=== PATIENT | male | born 2000 | race Caucasian/White ===

== ENCOUNTER 2018-11-27 11:01 | Outpatient (CLI) | payer OTHER ==
[2018-11-27 11:34] VITALS: BP 90/50
--- NOTE | 2018-11-27 11:34 | SLEEP CARE CONSULTATION ---
Information from patient questionnaire entered by Gilma Arellano. I have reviewed and concur with the information entered by Gilma Arellano. This document represents the service I personally performed and the decisions made by me, Prahbu Barnes MD, [facility]. History of Present Illness Reason for Visit: New patient Accompanied by: Spouse Chief Complaint: reports: Unrefreshed sleep, Snoring, Observed pauses in breathing, Fatigue, Other (TEETH GRINDING) Duration of Symptoms: ABOUT 4 YEARS Usual bedtime: 12:00 AM Time it takes to fall asleep: 30-60 MINUTES Snores at night: Yes Observed to quit breathing while asleep: Yes Sleeps alone due to snoring: No Number of times waking at night: 0-4 Reasons for waking at night: reports: Bathroom, Other (DRY MOUTH) Toss, Turn, or Twitch while sleeping: Yes Recalls having dreams: Yes Usually gets out of bed at: [id number] Feels refreshed in the morning: No Morning headache: Yes Sleepy or fatigued during the day: Yes Ever fallen asleep while driving: No Takes day naps: Yes Dreams during day naps: Yes Prior sleep studies: No Additional HPI information: I had the pleasure of seeing Mr. Vega along with his today regarding the possibility of him having a sleep disorder. As you know, he is a 18 year old gentleman who complains of loud snore, observed apneas, teeth grinding, unrefreshed sleep, persistent fatigue, and excessive daytime sleepiness. He presently works evening shift. 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 Patient is Single and lives in [place]. Have you smoked in the past 12 months: Yes (VAPE) Alcohol use: No Caffeine use: Yes Caffeine amount and frequency: 1-2 DRINKS/DAY Family History Family history of sleep disordered breathing: Yes Family Hx Sleep Apnea: Father: Snoring Allergies and Home Medications Drug allergies reviewed: Yes Home medication list reviewed: Yes Review of Systems Cardiovascular: denies: high blood pressure, palpitations, chest pain, irregular heart rate or pulse, leg or foot swelling, have to sleep sitting up, other Respiratory: denies: shortness of breath, wheeze, sputum production, chronic cough, other Gastrointestinal: denies: heartburn, difficulty swallowing, nausea, vomitting, diarrhea, abdominal pain, other Urinary: denies: incontinence, frequency, urgency, impotence, other Neurological: reports: headaches Psychiatric: denies: Attention Deficit Hyperactivity, anxiety, depression, mood disorder, claustrophobia, other Endocrine: denies: thyroid disease, history of goiter, sluggishness, too hot or cold, excessive thirst, increased appetite, increased urination, unexplained weakness, other Musculoskeletal: reports: back pain Physical Exam Vital signs obtained and entered by: Dr. Barnes Blood Pressure: 90/50 Cuff size: long Heart Rate: 66 O2 Saturation: 99 Height: 5 ft 10 in Weight (kg): 124 lb Body Mass Index: 17.8 BMI Classification: Underweight Neck circumference: 13.5 HEENT: No craniofacial malformation Nostrils: patent to airflow Turbinates: normal Septum: midline Mouth and throat: normal Soft palate: long Hard palate: normal Uvula: normal Uvula visualization: 50% Mallampati Class II Tongue: normal in size Tonsils: small Chin and jaw: normal size and position Neck: normal w/o lymphadenopathy or thyromegaly Heart: regular rate and rhythm Lungs: clear bilaterally Abdomen: soft, non-tender Extremities: no edema or clubbing Neurologic: intact, no focal deficits Impression and Plan IMPRESSION: 1. Obstructive Sleep Apnea-Hypopnea Syndrome, as suggested by history of loud and irregular snoring, observed cessation of breath while asleep, frequent awakenings during the night, unrefreshed sleep, cognitive impairment, and daytime hypersomnolence. Narrow oropharynx is a common predisposing factor for obstructive sleep apnea-hypopnea syndrome. Pathophysiology of sleep-disordered breathing was discussed. I informed the patient of what the sleep studies involve and after some discussion, he agreed to proceed. Plan: 1. Schedule polysomnography and return in 1 to 2 weeks after the study to discuss result and initiate therapy. 2. Avoid long distance driving or when feeling sleepy. 3. Avoid alcohol, sedative and muscle relaxant around bedtime. I spent 100% of this 15 minute visit face to face with the patient with greater than 50% of this was spent time counseling the patient and coordination of care.
== END 2018-11-27 11:02 | disposition home or self-care (01) ==
LOC: SC 11:01
PROVIDERS: ATTEND Internal Medicine Pulmonary Disease
DX: R06.83 Snoring (principal); R06.81 Apnea, not elsewhere classified; G47.8 Other sleep disorders; R41.89 Other symptoms and signs involving cognitive functions and awareness; G47.10 Hypersomnia, unspecified
CPT/HCPCS: 99203; 99212

== ENCOUNTER 2018-12-15 20:37 | Outpatient (CLI) | payer OTHER | END 2018-12-15 20:38 | disposition home or self-care (01) | LOC: SC 20:37 | PROVIDERS: ATTEND Internal Medicine Pulmonary Disease | DX: R06.83 Snoring (principal); G47.63 Sleep related bruxism | CPT/HCPCS: 95810 ==

== ENCOUNTER 2019-01-09 13:37 | Outpatient (CLI) | payer OTHER ==
[2019-01-09 15:06] VITALS: BP 96/60
--- NOTE | 2019-01-09 15:06 | SLEEP CARE CONSULTATION ---
Information from patient questionnaire entered by Vianey Lion. I have reviewed and concur with the information entered by Vianey Lion. This document represents the service I personally performed and the decisions made by me, Priscila Zhao RN, MSN, [employer]. History of Present Illness Initial Talmo Sleepiness Scale score: 15 Current Talmo Sleepiness Scale score: 13 Additional HPI information: BIJAN WALKER returns for follow up of the recently performed polysomnography and was informed of the polysomnography findings: I explained the pathophysiology behind obstructive sleep apnea. Patient does not have significant sleep disordered breathing but has elevated AHI in supine position so advised positional therapy. Methods to achieve positional management therapy were discussed; such as, positioning with pillows, wearing a T-shirt with tennis balls sewn into the back, Rematee belt, and Slumberbump belt. Pamphlets provided on how to obtain the commercially available products. Patient has snoring. Snoring can be reduced by weight loss but is at low normal weight so no weight loss is indicated. Snoring can also be treated with an oral appliance from a dentist. Advised to check insurance coverage. However, since patient has always snored every night and only has intermittent difficulty breathing through his nose seasonal, an ENT evaluation is recommended for evaluation to see if other treatment is indicated. Snoring can also disrupt sleep. Patient counseled not drink alcohol less than 4 hours before bedtime as it can increase snoring and apnea. Patient does not drink alcohol. Patient was cautioned about risks of drowsy driving until sleepiness symptoms resolve. Patient denies drowsy driving. [facility] patient education on snoring and sleep apnea given and reviewed. Sleep Study - Polysomnography Polysomnography findings: The quality of the study is good. The patient had normal sleep efficiency. The sleep architecture was normal. Respiratory monitoring showed no significant sleep disordered breathing (AHI = 2.2) or hypoxia (lenore oxygen saturation of 83% but only 0.3% to the total sleep time was spent with oxygen saturation below 90%). The few respiratory events occurred only during supine sleep (supine AHI = 5.8; non- supine = 0.00). Snore was light to loud in intensity. There was no significant periodic leg movement of sleep. Cardiac rhythm was normal sinus rhythm without significant arrhythmia. No abnormal behavior (parasomnia) observe d during the night except bruxism.. Allergies and Home Medications Known drug allergies: No Home medication list reviewed: Yes (none) Review of Systems Review of systems same as previous: Yes Physical Exam Blood Pressure: 96/60 Cuff size: regular Heart Rate: 64 O2 Saturation: 98 Height: 5 ft 9 in Weight: 129 lb 6.4 oz Body Mass Index: 19.1 BMI Classification: Healthy weight Impression and Plan 1. Snoring but no significant sleep disordered breathing except supine. Thus patient will start on positional therapy and return in 2 months to check effectiveness. Since he is a loud snorer despite low weight, I recommend an ENT referral for further evaluation to see if treatment indicated as snoring can disrupt sleep and contribute to sleepiness symptoms. 2. Bruxism, patient advised to follow up with dentist for evaluation and treatme nt. * positional therapy * Recommend ENT consultation. * Avoid alcohol consumption near bedtime * The patient is cautioned about driving until sleepiness is completely resolved. * Return in 2 months for follow up. I will response compliance at that time. I spent 100% of this 25 minute visit face to face with the patient with greater than 50% of this was spent time counseling the patient and coordination of care.
== END 2019-01-09 13:38 | disposition home or self-care (01) ==
LOC: SC 13:37
PROVIDERS: ATTEND Nurse Practitioner Family
DX: R06.83 Snoring (principal)
CPT/HCPCS: 99212; 99214